=== PATIENT | male | born 1975 | race Caucasian/White ===

== ENCOUNTER 2017-04-03 18:51 | Emergency (ER) | payer BC ==
[~2017-04-03] VITALS: Ht 180.3 cm; Wt 86.2 kg
[2017-04-03] MEDS ORDERED: Norco 7.5mg/325mg tab ORAL ONE (19:15)
[2017-04-03] MEDS ORDERED: Morphine Sulfate 4mg/ml Inj ONE (19:21)
[2017-04-03 19:27] VITALS: BP 125/84
[2017-04-03] MEDS ORDERED: Morphine Sulfate 4mg/ml Inj IM ONE (19:30)
[2017-04-03] MEDS ORDERED: BACTRIM DS TAB1 EAC1 ORAL (19:43)
[2017-04-03] MEDS ORDERED: CEPHALEXIN500 MG ORAL (19:43)
[2017-04-03] MEDS ORDERED: IBUPROFEN600 MG ORAL (20:16)
[2017-04-03] MEDS ORDERED: NORCO 5-325 TA1 EAC1 ORAL (20:16)
[2017-04-03 20:25] VITALS: BP 125/84
--- NOTE | 2017-04-03 20:44 | Emergency Room Report ---
History of Present Illness General Chief Complaint: Pain Source: Patient Present Illness HPI The patient is a 41-year-old male presenting for left elbow pain and left hand pain after falling off his skateboard today. Pain is described as a 9/10 sharp sensation primarily to the left elbow. Worse with touch and movement. He denies any numbness or tingling. He denies previous injury to these areas. He denies hitting his head or loss of consciousness. He denies other symptoms such as N, V, F, chills, SWAIN, dizziness, blurred vision, SOB, CP, Allergies: Coded Allergies: No Known Allergies (Unverified , 04/03/17) Patient History Past Medical History: see triage record Pertinent Family History: none Reviewed Nursing Documentation: PMH: Agreed, PSxH: Agreed Nursing Documentation-PMH Past Medical History: No Stated History Review of Systems All Other Systems: negative except mentioned in HPI Physical Exam Vital Signs Date Time Temp Pulse Resp B/P Pulse Ox O2 Delivery O2 Flow Rate FiO2 04/03/17 19:01 99.3 118 15 125/84 95 Room Air Sp02 EP Interpretation: reviewed, normal General Appearance: no apparent distress, alert, GCS 15, non-toxic Head: normocephalic, atraumatic Eyes: bilateral eye PERRL, bilateral eye normal inspection ENT: hearing grossly normal, normal pharynx, no angioedema, normal voice Neck: full range of motion, supple/symm/no masses Musculoskeletal: decreased range of motion - L eblow, swelling - over the L elbow and L hand, tender - TTP over the L posterior elbow and diffusely over hand Neurologic: alert, oriented x3, responsive, motor strength/tone normal, sensory intact, speech normal Psychiatric: judgement/insight normal, memory normal, mood/affect normal, no suicidal/homicidal ideation Skin: normal color, no rash, warm/dry, well hydrated Procedures Splinting Splinting : Consent: Verbal Location: L arm Hand-Made Type: plaster Splint: coaptation Pre-Proc Neuro Vasc Exam: normal Post-Proc Neuro Vasc Exam: normal Patient Tolerated: Well Complications: None Medical Decision Making PA Attestation Dr. Yanez is my supervising physician. Patient management was discussed with my supervising physician Diagnostic Impression: Primary Impression: Elbow fracture, left Qualified Codes: S42.402A - Unspecified fracture of lower end of left humerus , initial encounter for closed fracture ER Course The patient is a 41-year-old male presenting with left elbow left hand pain Ddx considered include but not limited to sprain/strain, fracture, contusion Physical exam reveals swelling and tenderness with limited active range of motion to the left elbow. There is also diffuse tenderness and soft tissue swelling to the left hand. Full active range of motion of the wrist and MCP joints. Otherwise exam is unremarkable X-ray of the left elbow reveals a fracture of the proximal radius. No acute findings of the hand x-ray A coaptation splint is placed with a sling. The patient was given IM morphine for pain with good relief. He will be discharged home with a prescription for [place] and Motrin. He needs to follow up with orthopedics as soon as possible Other X-Ray Diagnostic Results Other X-Ray Diagnostic Results #1: X-Ray ordered: L arm # of Views/Limited Vs Complete: 3 View Indication: Pain EP Interpretation: Yes Interpretation: no dislocation, other - + STS and fracture to the radius Impression: Other - fracture Interpreting ER Provider: Dr. Jameel WHITE Scribe Text I am acting as scribe for my supervising physician. My supervising physician's interpretation of the L elbow xrays are there is a fracture of the radius. Other X-Ray Diagnostic Results #2: X-Ray ordered: L hand # of Views/Limited Vs Complete: 3 View Indication: Pain EP Interpretation: Yes Interpretation: no dislocation, no soft tissue swelling, no fractures, nonspecific bowel gas Impression: No acute disease Interpreting ER Provider: Dr. Jameel Guadalupeibeliu Text I am acting as scribe for my supervising physician. My supervising physician's interpretation of the L hand xrays are there are no fractures, dislocations or soft tissue swelling. Last Vital Signs Date Time Temp Pulse Resp B/P Pulse Ox O2 Delivery O2 Flow Rate FiO2 04/03/17 20:25 99.3 15 125/84 95 Room Air 04/03/17 19:01 118 Status: improved Disposition: HOME, SELF-CARE Condition: Improved Scripts Hydrocodone Bit/Acetaminophen 5-325* (NORCO 5-325 TABLET*) 1 Each Tablet 1 TAB ORAL Q6HR Y for For Pain, #10 TAB Prov: NATALIE MOLINA P.A. 04/03/17 Ibuprofen* (MOTRIN*) 600 Mg Tablet 600 MG ORAL Q8H Y for For Pain, #30 TAB 0 Refills Prov: NATALIE MOLINA 04/03/17 Patient Instructions: Elbow Fracture, Simple Additional Instructions: I discussed my findings with the patient. All questions and concerns have been answered. Treatment and medication compliance have been addressed. I advised the patient that they need to follow up with orthopedics as soon as possible. Return to ED if pain remains or worsens, numbness or tingling occurs, new rash is noticed, fever is noticed, or if needed for any reason. Patient verbalized understanding of discharge instructions. NATALIE MOLINA Apr 03, 2017 20:44
--- NOTE | 2017-04-04 09:48 | Diagnostic Imaging Report ---
Indication: Left elbow pain Technique: Left elbow 2 views Comparison: None Findings: Examination is limited by only 2 orthogonal planes. There is a markedly comminuted fracture involving the radial head and neck with a rotated and displaced radial head fragment that measures approximately 2.5 cm. Soft tissue swelling is noted. Impression: Markedly comminuted fracture involving the radial head and neck with rotated and displaced radial head fragment measuring approximately 2.5 cm. Findings discussed with Dr. Orona 04/04/17 by phone.
--- NOTE | 2017-04-04 09:50 | Diagnostic Imaging Report ---
Indication: Left hand pain Technique: Left hand 3 views Comparison: None Findings: There is no acute fracture or dislocation. The bone mineralization is normal. Soft tissue swelling of the hand is noted. Impression: No acute fracture or dislocation of the hand.
--- NOTE | 2017-04-05 08:18 | Diagnostic Imaging Report ---
Indication: Left wrist pain Technique: XRAY WRIST MIN 3V LEFT Comparison: None Findings: There is no radiologically evident acute fracture or dislocation. Soft tissue swelling is noted. There is an apparently corticated 3 mm ossific density dorsal to the carpal bones on the lateral projection. Impression: Apparently corticated 3 mm ossific density dorsal to the carpal bones on the lateral projection. Acuity indeterminate but probably nonacute triquetral fracture cannot be excluded. Clinical correlation recommended. Otherwise no acute fracture.
== END 2017-04-03 20:25 | disposition home or self-care (01) ==
LOC: EDBD 18:51 → EMR 19:59
DX: S42.402A Unspecified fracture of lower end of left humerus, initial encounter for closed fracture (principal); V00.131A Fall from skateboard, initial encounter; Y93.51 Activity, roller skating (inline) and skateboarding; Y92.9 Unspecified place or not applicable
CPT/HCPCS: 29125; 29240; 73080; 73110; 73130; 96372; 99284; J2270

== ENCOUNTER 2017-04-26 14:06 | Outpatient (CLI) | payer BC ==
[~2017-04-26 14:06] MED LIST: BACTRIM DS TAB1 EAC1 ORAL; CEPHALEXIN500 MG ORAL; IBUPROFEN600 MG ORAL; NORCO 5-325 TA1 EAC1 ORAL
== END 2017-04-26 16:06 | disposition home or self-care (01) ==
LOC: VAS 14:06
DX: I82.622 Acute embolism and thrombosis of deep veins of left upper extremity (principal)
CPT/HCPCS: 93931; 93971

== ENCOUNTER → 2017-04-29 | Day surgery (SDC) | payer BC ==
[2017-04-29] VITALS (7 sets, daily range): BP systolic 109–136; BP diastolic 66–80
[~2017-04-29] VITALS: Ht 180.3 cm; Wt 83.9 kg
[~2017-04-29] MED LIST changes: +Alfentanil 2ml Inj ONE; +Atropine Inj 1mg/10ml Syr IV PRN; +Bacitracin 50000 Units Vial ONE; +Bupivacaine w/Epi 0.5% 30ml Vial INJ ONE; +D5 1/2NS 1,000 ML IV SCH; +Dexamethasone 4mg/ml vial ONE; +DiphenhydrAMINE 50mg/ml Inj IVP PRN; +EPINEPHrine 1mg/1ml Amp ONE; +GABAPENTIN800 MG ORAL; +HYDROmorphone 1mg/ml Carpuject SUBQ PRN; +Hydromorphone 0.5mg/0.5ml inj IVP PRN; +Ketorolac 30mg Inj IV PRN; +Ketorolac 60mg Inj IV PRN; +LORazepam Inj 2mg/ml 1ml IV PRN; +LR 1000ml 1,000 ML IVLG SCH; +LR 1000ml ONE; +Lidocaine 1% MPF 10mg/ml 5ml ONE; +Meperidine 25mg/0.5ml Inj (FOR RIGORS ONLY) IV PRN; +Metoclopramide 10mg/2ml Inj IVP PRN; +Midazolam 2mg/2ml Inj IVP PRN; +NS Irrig 1000ml IRRIG ONE; +NS Irrig 1000ml ONE; +NeoSporin Gu Irrig 1ml Amp IRRIG ONE; +Norco 5mg/325mg tab ORAL PRN; +Norco 7.5mg/325mg tab ORAL PRN; +PRISTIQ50 MG PO; +Propofol 200mg/20ml IV ONE; +Ropivacaine 5mg/ml Vial 20ml INJ ONE; +SUBOXONE 8 MG-1 EAC2 SL; +Sodium Chloride 10ml vial INJ ONE; +Tylenol #3 tab (300mg/30mg) ORAL PRN; +ceFAZolin 1gm/50ml Premix 50 ML IV ONE; +celeBREX 200mg Cap **SURGERY PATIENTS ONLY ORAL ONE; +fentaNYL 100 mcg/2 mL IV PRN; +oxyCODONE HCL/Acetaminophen 5/325mg ORAL PRN; +oxyCONTIN 20mg tab ORAL ONE
--- NOTE | 2017-04-29 14:49 | Anethesia Preoperative Eval ---
Anesthesia Pre-op PMH/ROS General Date of Evaluation: Apr 29, 2017 Time of Evaluation: 16:33 Anesthesiologist: Atul ASA Score: ASA 2 Mallampati Score Class I : Soft palate, uvula, fauces, pillars visible Class II: Soft palate, uvula, fauces visible Class III: Soft palate, base of uvula visible Class IV: Only hard plate visible Mallampati Classification: Class II Surgeon: Venancio Diagnosis: L elbow Pain Surgical Procedure: ORIF L Elbow Anesthesia History: none Family History: no anesthesia problems Allergies: Coded Allergies: No Known Allergies (Unverified , 04/03/17) Medications: see eMAR Past Medical History Cardiovascular: Reports: other - HL Pulmonary: Reports: asthma Neurologic/Psychiatric: Reports: depression/anxiety PSxH Narrative: Abscess R Arm Anesthesia Pre-op Phys. Exam Physician Exam Last Vital Signs Date Time Temp Pulse Resp B/P (MAP) Pulse Ox O2 Delivery O2 Flow Rate FiO2 04/29/17 14:09 97.5 81 18 133/80 97 Room Air Constitutional: NAD Neurologic: CN 2-12 intact Cardiovascular: RRR Respiratory: CTA Gastrointestinal: S/NT/ND Airway Exam Mallampati Score: Class II MO: full ROM: full Teeth: missing, intact Anesthesia Pre-op A/P Risk Assessment & Plan Assessment: ASA 2 Plan: GA, BIS, Glidescope Status Change Before Surgery: No Pre-Antibiotics Dru Grams Ancef IV Given Within 1 Hr of Incision: Yes Time Given: 16:46 Daniel Pollard MD Apr 29, 2017 14:49
--- NOTE | 2017-04-29 14:50 | Immediate Post-Op Evaluation ---
Immediate Post-Op Evalulation Immediate Post-Op Evalulation Procedure: ORIF L Elbow, R Ankle Mass Removal Date of Evaluation: Apr 29, 2017 Time of Evaluation: 17:49 IV Fluids: 1000 LR Blood Products: 0 Estimated Blood Loss: 25 Urinary Output: 0 Blood Pressure Systolic: 113 Blood Pressure Diastolic: 68 Pulse Rate: 58 Respiratory Rate: 16 O2 Sat by Pulse Oximetry: 100 Temperature (Fahrenheit): 97.2 Pain Score (1-10): 1 Nausea: No Vomiting: No Complications 0 Patient Status: awake, reacts, patent, none Hydration Status: adequate Dru Grams Ancef IV Given Within 1 Hr of Incision: Yes Time Given: 16:46 Daniel Pollard MD Apr 29, 2017 14:50
--- NOTE | 2017-04-29 14:50 | 48 Hour Post Anesthesia Eval ---
Post Anesthesia Evaluation Procedure: ORIF L Elbow Date of Evaluation: Apr 29, 2017 Time of Evaluation: 20:11 Blood Pressure Systolic: 118 0: 74 Pulse Rate: 56 Respiratory Rate: 18 Temperature (Fahrenheit): 98.2 O2 Sat by Pulse Oximetry: 100 Airway: patent Nausea: No Vomiting: No Pain Intensity: 1 Hydration Status: adequate Cardiopulmonary Status: Stable Mental Status/LOC: patient returned to baseline Follow-up Care/Observations: 0 Post-Anesthesia Complications: 0 Follow-up care needed: ready to discharge Daniel Pollard MD Apr 29, 2017 14:50
--- NOTE | 2017-04-29 16:36 | Pre-Procedure Note/Attestation ---
Pre-Procedure Note/Attestation Complete Prior to Procedure Planned Procedure: bilateral Procedure Narrative: excision ankle mass and left radial head excision Indications for Procedure Pre-Operative Diagnosis: left radial head fracture and right ankle mass Attestation I attest that I discussed the nature of the procedure; its benefits; risks and complications; and alternatives (and the risks and benefits of such alternatives ), prior to the procedure, with the patient (or the patient's legal mortician supplies sales representative). I attest that, if there was a reasonable possibility of needing a blood transfusion, the patient (or the patient's legal mortician supplies sales representative) was given the [facility] standardized written summary, pursuant to the [place] Blood Safety Act ([place] Health and Safety Code # 1645, as amended). I attest that I re-evaluated the patient just prior to the surgery and that there has been no change in the patient's H&P, except as documented below: JENIFFER GAITAN Apr 29, 2017 16:36
--- NOTE | 2017-04-29 16:37 | Operative Note - PDOC ---
Operative Note Operative Note Pre-op Diagnosis: left radial head fracture and right ankle mass Procedure: left radial head excision and removal right ankle mass Post-op Diagnosis: same as pre-op plus Anesthesia: MAC Specimen: none Complications: none Condition: stable Estimated Blood Loss: none Implant(s) used?: JENIFFER Gillis Apr 29, 2017 16:37
--- NOTE | 2017-04-30 08:30 | Operative Note - Dictated ---
DATE OF OPERATION: 04/29/2017 PREOPERATIVE DIAGNOSES: 1. Left comminuted radial head fracture. 2. Right ankle mass. POSTOPERATIVE DIAGNOSES: 1. Left comminuted radial head fracture. 2. Right ankle mass. PROCEDURES: 1. Excision of radial head, left elbow. 2. Open excision of right ankle mass. 3. Left elbow arthrotomy with removal of intraarticular loose body. SURGEON: Boone Craft M.D. ANESTHESIA: Interscalene with general. Indication For The Procedure: The patient is a pleasant 41-year-old gentleman who sustained a mechanical fall, was diagnosed with a comminuted radial neck fracture. We attempted to try conservative treatment, but he had a blocked motion and displaced fragments. Therefore, he elected to undergo possible radial head excision. Given his smoking history and the type of work that he does, need to get back to work as soon as possible. The risks, limitations, expectations, and complications of excising the radial head, alternatives including fixing the radial head is possible with screws was discussed. We also discussed replacement, which in this case I think was not indicated given that he did not really have any formal wrist pain. All questions addressed including continued stiffness, need for future surgery, risk of anesthesia, medical complications, DVT, PE, and mortality risks. All questions were addressed. Description Of Procedure: Informed consent was obtained. The patient was brought to the operating room and placed under interscalene general anesthesia. The patient had a tourniquet applied to left proximal arm. The left arm was prepped and draped in a sterile manner. Time-out was performed. Ancef was administered. A lateral skin incision along the epicondyle distally along the radial head was made. Blunt dissection through the subcutaneous tissue was performed. The extensor tendon was then incised down to the capsule. Care was taken not to extend the arthrotomy site to distal to avoid injuring the medial collateral ligament. At this point, the fragment of the radial head, which was flipped almost 180 degrees was then removed. Given the type of fracture that had presented and the fact that the patient has a significant smoking history and needs to get back to work, it was felt that fixing this would be extremely challengeable with a high risk of nonunion and need for additional surgery. Therefore, we elected to undergo excision of the radial head. Once that part was removed, the remaining portion of the radial head was assessed. There was a fracture that extended through the radial head of the remaining fragment, it is nondisplaced, but the fragment did move independently. Therefore, this fragment was also removed. Once this fragment was removed, socket of the radial was performed to kind of even out the fracture site. Once that was done, the elbow was copiously irrigated and any intra-articular loose bodies were removed. Once that was completed, the capsule and lateral collateral ligament was reapproximated using #0 Vicryl suture. The extensor tendon was approximated with #0 Vicryl suture. Skin was approximated using 2-0 Vicryl and 3-0 Monocryl sutures. Compression dressing was applied. At this point, attention was drawn towards the right ankle. Right ankle was prepped and draped in a sterile manner. The skin incisions along the mass was performed. Blunt dissection along the skin incision was performed. A hard fibrous tissue was then excised and removed. Hemostasis using electrocautery. At this point, the wound was copiously irrigated. The skin was closed using 3-0 Monocryl suture. Steri-Strips and sterile dressing were applied. The patient was awoken and taken to the recovery room with stable signs. ESTIMATED BLOOD LOSS: Minimal. COMPLICATIONS: None. SPECIMENS: Include: 1. Right ankle mass. 2. Right radial head fragments. IMPLANTS: None. Boone Craft M.D. DR: KALLI JOB#: [id number] CC:
== END | disposition home or self-care (01) ==
LOC: SUR 13:18
DX: S52.122A Displaced fracture of head of left radius, initial encounter for closed fracture (principal); V00.131A Fall from skateboard, initial encounter; Y92.89 Other specified places as the place of occurrence of the external cause; Y99.8 Other external cause status; D21.21 Benign neoplasm of connective and other soft tissue of right lower limb, including hip; M24.022 Loose body in left elbow; Z72.0 Tobacco use
CPT/HCPCS: 11402; 24101; 24130; J0171; J0690; J1100; J2250; J2405; J2704; J2795; J3490; J7120; 94003; 94150

== ENCOUNTER 2017-05-29 19:27 | Emergency (ER) | payer SELFPAY ==
[~2017-05-29] VITALS: Ht 180.3 cm; Wt 83.9 kg
[~2017-05-29 19:27] MED LIST changes: -Alfentanil 2ml Inj ONE; -Atropine Inj 1mg/10ml Syr IV PRN; -Bacitracin 50000 Units Vial ONE; -Bupivacaine w/Epi 0.5% 30ml Vial INJ ONE; -D5 1/2NS 1,000 ML IV SCH; -Dexamethasone 4mg/ml vial ONE; -DiphenhydrAMINE 50mg/ml Inj IVP PRN; -EPINEPHrine 1mg/1ml Amp ONE; -HYDROmorphone 1mg/ml Carpuject SUBQ PRN; -Hydromorphone 0.5mg/0.5ml inj IVP PRN; -Ketorolac 30mg Inj IV PRN; -Ketorolac 60mg Inj IV PRN; -LORazepam Inj 2mg/ml 1ml IV PRN; -LR 1000ml 1,000 ML IVLG SCH; -LR 1000ml ONE; -Lidocaine 1% MPF 10mg/ml 5ml ONE; -Meperidine 25mg/0.5ml Inj (FOR RIGORS ONLY) IV PRN; -Metoclopramide 10mg/2ml Inj IVP PRN; -Midazolam 2mg/2ml Inj IVP PRN; -NS Irrig 1000ml IRRIG ONE; -NS Irrig 1000ml ONE; -NeoSporin Gu Irrig 1ml Amp IRRIG ONE; -Norco 5mg/325mg tab ORAL PRN; -Norco 7.5mg/325mg tab ORAL PRN; -Propofol 200mg/20ml IV ONE; -Ropivacaine 5mg/ml Vial 20ml INJ ONE; -Sodium Chloride 10ml vial INJ ONE; -Tylenol #3 tab (300mg/30mg) ORAL PRN; -ceFAZolin 1gm/50ml Premix 50 ML IV ONE; -celeBREX 200mg Cap **SURGERY PATIENTS ONLY ORAL ONE; -fentaNYL 100 mcg/2 mL IV PRN; -oxyCODONE HCL/Acetaminophen 5/325mg ORAL PRN; -oxyCONTIN 20mg tab ORAL ONE
[2017-05-29 19:51] VITALS: BP 128/75
[2017-05-29] MEDS ORDERED: BACTRIM-DS1 EA ORAL (19:52)
[2017-05-29] MEDS ORDERED: CEPHALEXIN500 MG ORAL (19:52)
--- NOTE | 2017-05-29 19:53 | Emergency Room Report ---
History of Present Illness General Chief Complaint: Wound Recheck/Suture Removal Present Illness HPI Patient is a 42-year-old male with no significant past medical history who presents today complaining of possible infection to his postop surgical site. Patient had a excision of the left radial head performed on 04/29/[address] Craft. He presents is Dr. Craft 2 weeks after the surgery and he was placed on Keflex. Patient states he was not taking the antibiotics as prescribed. Patient notes that he is still having redness to the incision site. He has not contacted Dr. Craft's office regarding the issue. He denies any fever, chills or associated symptoms. Allergies: Coded Allergies: No Known Allergies (Unverified , 04/03/17) Patient History Reviewed Nursing Documentation: PMH: Agreed, PSxH: Agreed Nursing Documentation-PMH Hx Cardiac Problems: Yes - LEFT ELBOW SURGERY Apr Hx Asthma: Yes Hx Cancer: No Hx Gastrointestinal Problems: Yes Hx Neurological Problems: No Review of Systems Skin: Reports: other - infection All Other Systems: negative except mentioned in HPI Physical Exam Vital Signs Date Time Temp Pulse Resp B/P (MAP) Pulse Ox O2 Delivery O2 Flow Rate FiO2 05/29/17 19:31 98.2 92 18 128/75 97 Room Air Sp02 EP Interpretation: reviewed, normal General Appearance: no apparent distress, alert, GCS 15, non-toxic Head: normocephalic, atraumatic Eyes: bilateral eye normal inspection, bilateral eye PERRL ENT: hearing grossly normal, normal pharynx, no angioedema, normal voice Neck: full range of motion, supple/symm/no masses Respiratory: chest non-tender, lungs clear, normal breath sounds, speaking full sentences Cardiovascular #1: regular rate, rhythm, no edema Cardiovascular #2: 2+ carotid (R), 2+ carotid (L), 2+ radial (R), 2+ radial (L) , 2+ dorsalis pedis (R), 2+ dorsalis pedis (L) Gastrointestinal: normal bowel sounds, non tender, soft, non-distended, no guarding, no rebound Rectal: deferred Genitourinary: normal inspection, no CVA tenderness Musculoskeletal: back normal, gait/station normal, normal range of motion, non- tender, calf tenderness Neurologic: alert, oriented x3, responsive, motor strength/tone normal, sensory intact, speech normal Psychiatric: judgement/insight normal, memory normal, mood/affect normal, no suicidal/homicidal ideation Reflexes: 3+ bicep (R), 3+ bicep (L), 3+ tricep (R), 3+ tricep (L), 3+ knee (R) , 3+ knee (L) Skin: normal color, no rash, warm/dry, well hydrated, other - 1 cm surgical incision to the lateral aspect of the left elbow, 6 cm of surrounding erythema. No purulent discharge is expressed Lymphatic: no adenopathy Medical Decision Making PA Attestation supervising physicians DR. Pace Medicare Attestation findings consistent with a wound infection. The patient has not failed outpatient treatment. He however did not complete a course of antibiotics. Infection was not resolved. The wound cultures are obtained today. Patient is placed on Bactrim and Keflex and instructed to follow up with Dr. Craft in 2 days. Discussed case with Dr. Pace who personally evaluated pt and agrees with plan. Attempted to contact Dr. Craft unsuccessfully. Diagnostic Impression: Primary Impression: Infected wound Additional Impressions: Status post orthopedic surgery, follow-up exam Noncompliance Last Vital Signs Date Time Temp Pulse Resp B/P (MAP) Pulse Ox O2 Delivery O2 Flow Rate FiO2 05/29/17 19:31 98.2 92 18 128/75 97 Room Air Status: improved Disposition: HOME, SELF-CARE Condition: Stable Scripts Cephalexin* (KEFLEX*) 500 Mg Capsule 1000 MG ORAL BID for 10 Days, #40 CAP Prov: Carlene Dubose P.A. 05/29/17 Trimethoprim/Sulfamethoxazole (Bactrim Ds Tablet) 1 Each Tablet 1 TAB ORAL TWICE A DAY for 10 Days, #20 TAB Prov: Carlene Dubose P.A. 05/29/17 Patient Instructions: Wound Check Carlene Dubose.Jay May 29, 2017 19:53
[2017-05-29 20:24] VITALS: BP 128/75
== END 2017-05-29 20:24 | disposition home or self-care (01) ==
LOC: EMR 19:46
DX: T81.4XXA Infection following a procedure, initial encounter (principal); Y83.8 Other surgical procedures as the cause of abnormal reaction of the patient, or of later complication, without mention of misadventure at the time of the procedure; Y92.89 Other specified places as the place of occurrence of the external cause; J45.909 Unspecified asthma, uncomplicated; Z91.19 Patient's noncompliance with other medical treatment and regimen
CPT/HCPCS: 99284